=== PATIENT | female | born 1990 | race Caucasian/White ===

== ENCOUNTER 2018-10-24 14:22 | Emergency (ER) | payer OTHER ==
[2018-10-24 14:28] VITALS: BP 149/80
--- NOTE | 2018-10-24 15:15 | ED ---
Throat Pain/Nasal Congestion - HPI Summary HPI Summary: 28 year female presents with facial injury last night. She states she slipped on some black ice and landed on her face. She denies any LOC. She states she has pain around her eyes and in her jaw. She is not able to open her mouth due to the pain. No change in vision. No difficulties with eye movement. She admits occasional headache. No dizziness. no nausea or vomiting. She states she has not been having any difficulties concentrating. - History of Current Complaint Chief Complaint: EDFacialInjury Time Seen by Provider: 10/24/18 14:48 PMH/Surg Hx/FS Hx/Imm Hx Endocrine/Hematology History: Denies: Hx Anticoagulant Therapy Respiratory History: Denies: Hx Asthma Infectious Disease History: No Infectious Disease History: Denies: Traveled Outside the [place] in Last 30 Days - Family History Known Family History: Positive: Non-Contributory - Social History Alcohol Use: Occasionally Substance Use Type: Reports: None Review of Systems Negative: Fever Positive: Other - facial pain Negative: Chest Pain Negative: Shortness Of Breath All Other Systems Reviewed And Are Negative: Yes Physical Exam Triage Information Reviewed: Yes Vital Signs On Initial Exam: Initial Vitals Temp Pulse Resp BP Pulse Ox 98.7 F 93 16 149/80 100 10/24/18 14:24 10/24/18 14:24 10/24/18 14:24 10/24/18 14:24 10/24/18 14:24 Vital Signs Reviewed: Yes Appearance: Positive: Well-Appearing Skin: Positive: Warm, Dry Head/Face: Positive: Normal Head/Face Inspection Eyes: Positive: Normal, EOMI, ALEXANDRA, Conjunctiva Clear ENT: Positive: Normal ENT inspection, Pharynx normal, TMs normal Neck: Positive: Other: - nontender neck Respiratory/Lung Sounds: Positive: Clear to Auscultation, Breath Sounds Present Cardiovascular: Positive: Normal, RRR Abdomen Description: Positive: Nontender, Soft Bowel Sounds: Positive: Present Musculoskeletal: Positive: Normal Neurological: Positive: Normal Psychiatric: Positive: Normal Diagnostics - Vital Signs Vital Signs Temp Pulse Resp BP Pulse Ox 10/24/18 14:24 98.7 F 93 16 149/80 100 - Laboratory Lab Statement: Any lab studies that have been ordered have been reviewed, and results considered in the medical decision making process. - CT maxillaryfacial CT Interpretation Completed By: Radiologist Summary of CT Findings: no fracture EENT Course/Dx - Course Course Of Treatment: 28 year female presents with facial injury last night. She states she slipped on some black ice and landed on her face. She denies any LOC. She states she has pain around her eyes and in her jaw. She is not able to open her mouth due to the pain. No change in vision. No difficulties with eye movement. She admits occasional headache. No dizziness. no nausea or vomiting. She states she has not been having any difficulties concentrating. On exam normal neuro exam. Nares midline. Tenderness over the temporomandibular joint. No edema of the face. Extraocular movements intact. CT facial normal. Told to place ice on the area and take Tylenol ibuprofen. Patient understands agrees the plan. - Differential Diagnoses Differential Diagnoses: Epistaxis, Fracture, Other - concussion - Diagnoses Provider Diagnoses: Facial injury, Jaw pain Discharge - Sign-Out/Discharge Documenting (check all that apply): Patient Departure - Discharge Plan Condition: Good Disposition: HOME Patient Education Materials: Facial Contusion (ED) Referrals: [facility] - Mati BUNCH [Primary Care Provider] - Additional Instructions: Place ice on area as needed Take Tylenol or ibuprofen every 6 hours avoid hard, crunchy food Return to ED if develop any new or worsening symptoms - Billing Disposition and Condition Condition: GOOD Disposition: Home
== END 2018-10-24 16:00 | disposition home or self-care (01) ==
LOC: ED 14:22
DX: S09.93XA Unspecified injury of face, initial encounter (principal); R68.84 Jaw pain; W00.0XXA Fall on same level due to ice and snow, initial encounter; Y92.9 Unspecified place or not applicable
CPT/HCPCS: 70486; 99282